=== PATIENT | male | born 1990 | race African-American/Black ===

== ENCOUNTER 2023-07-02 12:35 | Observation (INO) | payer BC ==
[2023-07-02] MEDS ORDERED: Ondansetron PF 4 MG/2 ML Vial ONE (14:18)
[2023-07-02] MEDS ORDERED: Ketorolac Tromethamine 30 MG/ML VIAL ONE (14:18)
[2023-07-02 14:27] LABS: #Monocytes 0.2 thou/uL (0.11-0.59); %Basophils 0.2 % (0.0-1.0); %Lymphocytes 9.4 % (21.0-51.0); %Monocytes 2.4 % (0.0-10.0); %Neutrophils 87.7 % (42.0-75.0); Hematocrit 43.7 % (42.0-52.0); Hemoglobin 14.1 g/dL (14.0-18.0); Mean Corpuscular HGB CONC 32.3 g/dL (32.0-36.0); Mean Corpuscular Hemoglobin 26.6 pg (27.0-31.0); Mean Corpuscular Volume 82.5 fl (78.0-98.0); Mean Platelet Volume 10.7 fL (7.4-10.4); Platelet Count 219 10x3/uL (130-400); RBC Distribution Width 12.7 % (11.5-14.5); White Blood Cell (WBC) Count 9.2 10x3/uL (4.8-10.8)
[2023-07-02 14:46] LABS: Bacteria/HPF None Seen HPF (None Seen); Bilirubin Negative (Negative); Blood, Urine 2+ (Negative); CAUTI Indications for Culture Pelvic or flank pain; Clarity Extra Turbid (Clear); Glucose, Urine (Dipstick) 100 mg/dL (Negative); Ketone, Urine Negative (Negative); Leukocyte Negative Leu/uL (Negative); Nitrite Negative (Negative); Protein, Urine (Dipstick) 70 mg/dL (Neg-Trace); RBC/HPF Greater than 50 HPF (0-3); Specific Gravity, Urine 1.028 (1.002-1.036); Squamous Epithelial None Seen HPF (0-3); Urobilinogen Normal mg/dL (Less than 2); WBC/HPF 0-3 HPF (0-3); pH, Urine 8.5 (5.0-9.0)
[2023-07-02 14:49] LABS: Urine Culture Reflex No No
[2023-07-02] MEDS ORDERED: Iopamidol-370 76% 500 ML MDV (1 ML CHARGE) ONE (15:29)
[2023-07-02 16:12] LABS: ALT (SGPT) 56 U/L (8-55); AST (SGOT) 26 U/L (5-34); Albumin 4.2 g/dL (3.5-5.0); Alkaline Phosphatase 55 U/L (40-110); Anion Gap 16 mmol/L (10-20); BUN (Urea Nitrogen) 9 mg/dL (8.9-20.6); Bilirubin, Total 0.2 mg/dL (0.2-1.2); Calc. Creatinine Clearance 0 mL/min (70-130); Calcium 8.7 mg/dL (7.8-10.44); Carbon Dioxide 20 mmol/L (22-29); Chloride 106 mmol/L (98-107); Estimated GFR 113; Globulin 2.8 g/dL (2.4-3.5); Glucose 128 mg/dL (70-105); Lipase 22 U/L (8-78); Sodium 137 mmol/L (136-145)
[2023-07-02] MEDS ORDERED: cefTRIAXone (ROCEPHIN) 2 GM VIAL ONE (17:21)
[2023-07-02] MEDS ORDERED: Acetaminophen 325 MG TAB PO PRN (17:43)
[2023-07-02] MEDS ORDERED: Senokot S 8.6-50 MG TAB PO PRN (17:43)
[2023-07-02] MEDS ORDERED: Morphine 2 MG/ML VIAL SLOW IVP PRN (17:47)
[2023-07-02] MEDS: Sodium Chloride 0.9% 1,000 ML IV SCH (20:48)
[2023-07-02] MEDS: Famotidine 20 MG TAB PO SCH (20:50)
[2023-07-02] MEDS ORDERED: Tamsulosin HCl 0.4 MG CAP PO SCH (21:00)
[2023-07-02 21:06] VITALS: BMI 33.8
[2023-07-02] MEDS: Ketorolac Tromethamine 30 MG/ML VIAL IVP SCH (22:48)
[2023-07-03] MEDS: Sodium Chloride 0.9% 1,000 ML IV SCH ×2 (00:25→02:30)
[2023-07-03] MEDS: Ketorolac Tromethamine 30 MG/ML VIAL IVP SCH (05:10)
[2023-07-03 06:30] LABS: #Eosinphils 0.1 thou/uL (0.0-0.7); #Monocytes 0.5 thou/uL (0.11-0.59); #Neutrophils 4.2 thou/uL (1.40-6.50); %Basophils 0.1 % (0.0-1.0); %Eosinophils 1.3 % (0.0-10.0); %Monocytes 7.6 % (0.0-10.0); %Neutrophils 60.9 % (42.0-75.0); Hematocrit 38.9 % (42.0-52.0); Hemoglobin 12.3 g/dL (14.0-18.0); Mean Corpuscular HGB CONC 31.6 g/dL (32.0-36.0); Mean Corpuscular Hemoglobin 26.2 pg (27.0-31.0); Mean Corpuscular Volume 82.8 fl (78.0-98.0); Mean Platelet Volume 11.3 fL (7.4-10.4); Platelet Count 201 10x3/uL (130-400); RBC Distribution Width 12.8 % (11.5-14.5); White Blood Cell (WBC) Count 6.9 10x3/uL (4.8-10.8)
[2023-07-03 06:58] LABS: ALT (SGPT) 38 U/L (8-55); AST (SGOT) 20 U/L (5-34); Albumin 3.4 g/dL (3.5-5.0); Alkaline Phosphatase 45 U/L (40-110); Anion Gap 12 mmol/L (10-20); BUN (Urea Nitrogen) 9 mg/dL (8.9-20.6); Bilirubin, Total 0.2 mg/dL (0.2-1.2); Calc. Creatinine Clearance 235 mL/min (70-130); Calcium 8.8 mg/dL (7.8-10.44); Carbon Dioxide 23 mmol/L (22-29); Chloride 111 mmol/L (98-107); Estimated GFR 121; Globulin 2.7 g/dL (2.4-3.5); Glucose 104 mg/dL (70-105); Potassium 4.1 mmol/L (3.5-5.1); Protein, Total 6.1 g/dL (6.0-8.3); Sodium 142 mmol/L (136-145)
[2023-07-03] MEDS: Famotidine 20 MG TAB PO SCH (08:18)
[2023-07-03] MEDS ORDERED: Sodium Chloride 0.9% 1,000 ML IV SCH (08:48)
[2023-07-03] MEDS ORDERED: Iopamidol 30 ML ONE (10:25)
[2023-07-03] MEDS ORDERED: Meperidine HCl/PF 25 MG/ML VIAL ONE (10:33)
[2023-07-03] MEDS ORDERED: Ondansetron PF 4 MG/2 ML Vial ONE ×2 (10:33→10:42)
[2023-07-03] MEDS ORDERED: Famotidine/PF 20 mg/2ml Vial ONE (10:33)
[2023-07-03] MEDS ORDERED: fentaNYL 50 mcg/mL 1 mL Vial ONE (10:33)
[2023-07-03] MEDS ORDERED: Dexamethasone 20 MG/5 ML VIAL ONE (10:42)
[2023-07-03] MEDS ORDERED: Lidocaine 1% PF 5 ML VIAL ONE (10:42)
[2023-07-03] MEDS ORDERED: PROPOFOL 200 MG/20 ML VIAL ONE (10:42)
[2023-07-03] MEDS ORDERED: Ketorolac Tromethamine 30 MG/ML VIAL ONE (10:42)
[2023-07-03] MEDS ORDERED: Metoclopramide HCl 10 MG/2 ML VIAL ONE (10:42)
[2023-07-03 13:20] VITALS: BP 159/89; TEMP 98.7
[2023-07-03] MEDS ORDERED: cefTRIAXone\\ROCEPHIN 2 GM in Sodium Chloride 0.9% 100 ML IVPB SCH (18:00)
[2023-07-05] MEDS ORDERED: FLU VACC QS2023-24(6MOS UP)/PF 60 MCG/0.5 ML SYRINGE IM ONE (09:00)
== END 2023-07-03 15:25 | disposition home or self-care (01) ==
LOC: ERS 12:35 → SURG B 17:16 → INTOOBSV 17:16
PROVIDERS: ADMIT Internal Medicine; ATTEND Internal Medicine
PROC: 0WHR8YZ Insertion of Other Device into Genitourinary Tract, Via Natural or Artificial Opening Endoscopic (ICD-10-PCS; principal; 2023-07-03)
DX: N13.2 Hydronephrosis with renal and ureteral calculous obstruction (principal); E87.20 Acidosis, unspecified; R94.5 Abnormal results of liver function studies
CPT/HCPCS: 36415; 74177; 74420; 80053; 81001; 83690; 85025; 87086; 93005; 93010; 96361; 96365; 96375; C2617; J0696; J1100; J1885; J2175; J2405; J2704; J2765; J3010; J7050; Q9967; S0028

== ENCOUNTER 2023-07-10 08:00 | Day surgery (SDC) | payer BC ==
[2023-07-05 09:55] VITALS: BMI 34.0
[2023-07-10] MEDS ORDERED: LevoFLOXacin 500 mg/D5W 100 ML BAG ONE (09:34)
[2023-07-10] MEDS ORDERED: Iopamidol 30 ML ONE (11:01)
[2023-07-10] MEDS ORDERED: fentaNYL PF 100 MCG/2 ML SYRINGE ONE (11:11)
[2023-07-10] MEDS ORDERED: SUGAMMADEX SODIUM 200 MG/2 ML VIAL ONE (11:11)
[2023-07-10] MEDS ORDERED: PROPOFOL 200 MG/20 ML VIAL ONE (11:32)
[2023-07-10] MEDS ORDERED: Rocuronium Bromide 10 MG/ML (10ML VIAL) ONE (11:32)
[2023-07-10] MEDS ORDERED: Lidocaine 1% PF 5 ML VIAL ONE (11:32)
[2023-07-10] MEDS ORDERED: Meperidine HCl/PF 25 MG/ML VIAL ONE (12:57)
[2023-07-10] MEDS ORDERED: Phenazopyridine HCl 100 MG TAB ONE (13:21)
[2023-07-10] MEDS ORDERED: fentaNYL 50 mcg/mL 1 mL Vial ONE (13:33)
== END 2023-07-10 15:45 | disposition home or self-care (01) ==
LOC: SDC 08:00
PROVIDERS: ATTEND Urology
PROC: 0TC08ZZ Extirpation of Matter from Right Kidney, Via Natural or Artificial Opening Endoscopic (ICD-10-PCS; principal; 2023-07-10)
PROC: 0T768DZ Dilation of Right Ureter with Intraluminal Device, Via Natural or Artificial Opening Endoscopic (ICD-10-PCS; principal; 2023-07-10)
PROC: 0TC68ZZ Extirpation of Matter from Right Ureter, Via Natural or Artificial Opening Endoscopic (ICD-10-PCS; principal; 2023-07-10)
DX: N13.2 Hydronephrosis with renal and ureteral calculous obstruction (principal); Z79.899 Other long term (current) drug therapy; R81 Glycosuria
CPT/HCPCS: 74018; 74420; 82365; 88300; C1747; C1769; C2617; J1956; J2175; J2704; J3010; Q9967

== ENCOUNTER 2023-07-18 10:13 | Outpatient (CLI) | payer BC ==
[2023-07-18 11:49] LABS: Hematocrit 42.2 % (38.8-50.0); Hemoglobin 13.2 g/dL (13.5-17.5); Mean Corpuscular HGB CONC 31.3 g/dL (32.0-36.0); Mean Corpuscular Hemoglobin 25.5 pg (27.0-33.0); Mean Corpuscular Volume 81.6 fl (81.2-95.1); Mean Platelet Volume 10.4 fl (7.4-10.4); Platelet Count 332 10x3/uL (150-450); RBC Distribution Width 12.6 % (11.5-14.5); Red Blood Cell (RBC) Count 5.17 10x6/uL (4.32-5.72); White Blood Cell (WBC) Count 4.2 10x3/uL (3.5-10.5)
[2023-07-18 11:59] LABS: Anion Gap 12 mmol/L (10-20); BUN (Urea Nitrogen) 10 mg/dL (8.9-20.6); Calc. Creatinine Clearance 0 mL/min (70-130); Calcium 9.7 mg/dL (7.8-10.44); Carbon Dioxide 25 mmol/L (22-29); Chloride 105 mmol/L (98-107); Estimated GFR 119; Glucose 70 mg/dL (70-105); Potassium 4.4 mmol/L (3.5-5.1); Sodium 138 mmol/L (136-145)
[2023-07-18 12:12] LABS: PTT 30.3 sec (22.0-33.0); Prothrombin Time 10.5 sec (9.5-12.1)
== END 2023-07-18 10:14 | disposition home or self-care (01) ==
LOC: LABBT 10:13
PROVIDERS: ATTEND Urology
DX: Z01.812 Encounter for preprocedural laboratory examination (principal); N20.2 Calculus of kidney with calculus of ureter; R81 Glycosuria
CPT/HCPCS: 80048; 85027; 85610; 85730

== ENCOUNTER 2023-07-24 07:37 | Day surgery (SDC) | payer BC ==
[2023-07-18 15:20] VITALS: BMI 33.5
[2023-07-24] MEDS ORDERED: LevoFLOXacin 500 mg/D5W 100 ML BAG ONE (09:57)
[2023-07-24] MEDS ORDERED: Iopamidol 15 ML ONE (11:39)
[2023-07-24] MEDS ORDERED: Midazolam HCl 2 mg/2 ml Vial ONE (11:40)
[2023-07-24] MEDS ORDERED: fentaNYL 50 mcg/mL 1 mL Vial ONE (11:40)
[2023-07-24] MEDS ORDERED: SUGAMMADEX SODIUM 200 MG/2 ML VIAL ONE ×2 (11:40→13:21)
[2023-07-24] MEDS ORDERED: Lidocaine 1% PF 5 ML VIAL ONE (11:59)
[2023-07-24] MEDS ORDERED: PROPOFOL 200 MG/20 ML VIAL ONE (11:59)
[2023-07-24] MEDS ORDERED: Rocuronium Bromide 10 MG/ML (10ML VIAL) ONE (11:59)
[2023-07-24] MEDS ORDERED: Ondansetron PF 4 MG/2 ML Vial ONE (11:59)
[2023-07-24] MEDS ORDERED: Phenazopyridine HCl 100 MG TAB ONE (14:32)
== END 2023-07-24 16:02 | disposition home or self-care (01) ==
LOC: SDC 07:37
PROVIDERS: ATTEND Urology
PROC: 0TC68ZZ Extirpation of Matter from Right Ureter, Via Natural or Artificial Opening Endoscopic (ICD-10-PCS; principal; 2023-07-24)
PROC: 0T768DZ Dilation of Right Ureter with Intraluminal Device, Via Natural or Artificial Opening Endoscopic (ICD-10-PCS; principal; 2023-07-24)
DX: N20.2 Calculus of kidney with calculus of ureter (principal); Z87.442 Personal history of urinary calculi
CPT/HCPCS: 74018; 74420; C1747; C1769; C2617; J1956; J2250; J2405; J2704; J3010; Q9967

== ENCOUNTER 2023-10-14 08:40 | Outpatient (CLI) | payer BC ==
[2023-10-14] MEDS ORDERED: Iopamidol 370 76% 100 ML VIAL ONE (09:15)
== END 2023-10-14 08:41 | disposition home or self-care (01) ==
LOC: CT 08:40
PROVIDERS: ATTEND Urology
DX: N20.2 Calculus of kidney with calculus of ureter (principal); N28.89 Other specified disorders of kidney and ureter
CPT/HCPCS: 74178